=== PATIENT | female | born 1965 | race American Indian/Alaskan Native ===

== ENCOUNTER 2018-02-17 22:07 | Emergency (ER) | payer BC ==
[2018-02-17] MEDS: Ondansetron 4 MG/2 ML SDV IV ONE (23:32)
[2018-02-17] MEDS: Morphine 2 MG/ML Syringe IVPUSH ONE (23:34)
[2018-02-17] MEDS: Sodium Chloride 0.9% 10 ML Syringe FLUSH PRN (23:36)
[2018-02-17 23:58] LABS: CHLORIDE,CL 103 mmol/L (101-111); SODIUM,NA 136 mmol/L (135-145)
[2018-02-18] MEDS: Iopamidol 612 MG/ML 100 ML Bottle IVPUSH ONE (00:09)
--- NOTE | 2018-03-02 03:18 | ER ---
SUBJECTIVE: The patient is a 52-year-old, who comes into the emergency room POV and ambulates into the ER stating that she has had some left-sided abdominal pain and flank pain over the last 4 days or so, some chills, some nausea. No diarrhea. No bowel changes; except this morning, she did have one episode of nonbloody diarrhea. She took some Tylenol yesterday. She still feels somewhat nauseated. She denies history of kidney stones. Denies diverticulitis or diverticulosis. She denies any dysuria. No hematuria. No trauma or falls. No recent travel. PAST MEDICAL HISTORY: Includes: 1. OA. 2. Glaucoma. 3. Hyperlipidemia. 4. Pyelonephritis. 5. Urinary tract infection. 6. Hysterectomy. 7. Pregnancies. 8. Fibromyalgia. 9. Hyperthyroidism. 10.Psoriasis. 11.Anxiety. 12.Dermatitis. 13.Chickenpox and mumps. CURRENT MEDICATIONS: Include: 1. Celebrex p.o. daily. 2. Flexeril 10 mg p.o. daily. 3. Cymbalta 30 mg p.o. daily. 4. Xalatan eyedrops 1 drop topically daily. 5. Synthroid 100 mcg p.o. daily. ALLERGIES: She states she is allergic to levothyroxine, it causes swelling. SOCIAL HISTORY: She is a previous tobacco user. She does use alcohol on occasion. No other substance abuse. REVIEW OF SYSTEMS: No fever, chest pain, shortness of breath, ENT issues, headache, syncope, near syncope. She does have left-sided abdominal pain sometimes radiates up to her left flank. No specific bowel changes except one episode of diarrhea today. No melena. No hematochezia. No trauma or falls. No bites stings or rashes. Please see HPI. OBJECTIVE: Vital Signs: She is afebrile. Heart rate 81, blood pressure is 132/92, respiratory rate 16, oxygen 95% on room air. General: Pleasant, fairly good historian. Normocephalic and atraumatic. No respiratory distress. Chest: Clear. Cardiovascular: RRR. Skin: No jaundice. Abdomen: It is soft. Some left-sided tenderness, it is mild and vague and more subjective than objective. Possibly mild left-sided CVAT. No right-sided flank pain. LAB/STUDIES: Complete blood cell count was performed. White count was 11.6, she has no anemia. Normal differential. Electrolytes are quiet unremarkable. Creatinine was 0.7. Her urinalysis showed yellow urine with slight cloudiness. She had 30 of protein. Negative ketones. Large amount of occult blood. Negative nitrites. Negative leukocyte esterase. Rare bacteria. A CAT scan was performed and it did show bilateral kidney stones. It did not show any hydronephrosis or hydroureter or any stones present in the ureter at this time. However, it appears that one probably just likely passed which is the reason for her pain and also the hematuria. EMERGENCY ROOM COURSE: An IV was placed. She was given morphine for pain. Zofran to prevent vomiting. She tolerated this very well as the CAT scan and workup. Her nausea and pain resolved. All of the workup was discussed with her. She remained stable and much improved. ASSESSMENT: 1. Bilateral kidney stones, confirmed with CAT scan. 2. Hematuria, likely caused from passage of the kidney stone. PLAN: Advised the patient to pursue aggressive hydration, take Tylenol or ibuprofen for discomfort. Continue with her home medications. Follow up with her primary care provider for a recheck. I advised her that she could drop another stone from the kidney and pass it through her your. She will follow up this next week. [facility] /[id number]
== END 2018-02-18 01:23 | disposition home or self-care (01) ==
LOC: DL.ED 22:07
DX: N20.0 Calculus of kidney (principal); F41.9 Anxiety disorder, unspecified; L40.9 Psoriasis, unspecified; Z88.8 Allergy status to other drugs, medicaments and biological substances; Z79.899 Other long term (current) drug therapy; Z87.891 Personal history of nicotine dependence
CPT/HCPCS: 36415; 74177; 80053; 81001; 82150; 85025; 96374; 96375; 99284; J2270; J2405; J7050; Q9967

== ENCOUNTER 2019-11-21 19:15 | Emergency (ER) | payer BC ==
[2019-11-21] MEDS ORDERED: Lactated Ringers 1,000 ML IV ONE (19:51)
[2019-11-21] MEDS ORDERED: Sodium Chloride 0.9% 10 ML Syringe FLUSH PRN (19:51)
--- NOTE | 2019-11-21 19:55 | EDM.PDOC ---
ED HPI GENERAL MEDICAL PROBLEM - General Chief Complaint: General Stated Complaint: HEAD ACHE, OFF BALANCE, Time Seen by Provider: 11/21/19 19:50 Source of Information: Reports: Patient History Limitations: Reports: No Limitations - History of Present Illness INITIAL COMMENTS - FREE TEXT/NARRATIVE: she comes emergency department today with complaints of a week of not feeling well. She states that she is just getting over some type of bug over the last week. She has had an upset stomach. She has had diarrhea for multiple days. Today she feels lightheaded and unsteady when she is walking. She vomited at work last night. She has night sweats. No fever. No cough or congestion. No chest pain or shortness of breath or difficulty breathing. No syncope no palpitations. No abdominal pain. No hematuria dysuria or urinary frequency. . No vaginal discharge. She has had multiple bouts of diarrhea. She's had little appetite and she has drank little fluids.she does have a history of fibromyalgia and does complain of chronic back pain but she does complain of more pain on her left flank area. No hematuria no history of kidney stones. Left Lower Back Pain Score (Numeric/FACES): 7 - Related Data Allergies Allergy/AdvReac Type Severity Reaction Status Date / Time levothyroxine sodium Allergy Swelling Verified 05/17/19 07:03 [From Synthroid] GREEN DYE Allergy Swelling Uncoded 05/17/19 12:08 Home Meds: Home Meds Celecoxib 200 mg PO DAILY 02/17/18 [History] Latanoprost [Xalatan] 1 drop TOP DAILY 02/17/18 [History] Levothyroxine [Sythroid] 125 mcg PO DAILY 02/17/18 [History] Baclofen 5 mg PO BID 05/17/19 [History] Cholecalciferol (Vitamin D3) [Vitamin D3] 5,000 unit PO DAILY 05/17/19 [History] DULoxetine HCl [Cymbalta] 60 mg PO DAILY 05/17/19 [History] Fluticasone Propionate [Flonase] 2 inhalation NASBOTH BEDTIME 05/17/19 [History] SUMAtriptan succinate [Sumatriptan Succinate] 25 mg PO ASDIRECTED PRN MDD 200mg/ day 05/17/19 [History] Past Medical History HEENT History: Reports: Glaucoma Cardiovascular History: Reports: High Cholesterol Genitourinary History: Reports: Pyelonephritis, UTI, 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: Musculoskeletal History: Reports: Fibromyalgia Psychiatric History: Reports: Anxiety Endocrine/Metabolic History: Reports: Hyperthyroidism Dermatologic History: Reports: Eczema, Psoriasis - Infectious Disease History Infectious Disease History: Reports: Chicken Pox, Mumps - Past Surgical History Female Surgical History: Reports: Hysterectomy Social & Family History - Family History Family Medical History: Noncontributory - Tobacco Use Smoking Status *Q: Former Smoker Used Tobacco, but Quit: No - Caffeine Use Caffeine Use: Reports: Coffee, Energy Drinks, Soda, Tea - Recreational Drug Use Recreational Drug Use: No ED ROS GENERAL - Review of Systems Review Of Systems: Comprehensive ROS is negative, except as noted in HPI. ED EXAM, GENERAL - Physical Exam Exam: See Below Exam Limited By: No Limitations General Appearance: Alert, WD/WN Throat/Mouth: Other (oropharynx is quite dry lips are cracked) Head: Atraumatic, Normocephalic Neck: Normal Inspection, Supple, Non-Tender Respiratory/Chest: No Respiratory Distress, Lungs Clear, Normal Breath Sounds, No Accessory Muscle Use Cardiovascular: Normal Peripheral Pulses, Regular Rate, Rhythm GI/Abdominal: Normal Bowel Sounds, Soft, Non-Tender Back Exam: Normal Inspection, Full Range of Motion. No: CVA Tenderness (L), CVA Tenderness (R) Extremities: Normal Inspection, Normal Range of Motion, Normal Capillary Refill Neurological: Alert, Oriented, Normal Cognition Psychiatric: Normal Affect, Normal Mood Skin Exam: Warm, Dry, Intact, Cool Course - Vital Signs Last Recorded V/S: Last Vital Signs Temp 36.2 C 11/21/19 19:26 Pulse 71 11/21/19 19:26 Resp 18 11/21/19 19:26 BP 129/75 11/21/19 19:26 Pulse Ox 97 11/21/19 19:26 - Orders/Labs/Meds Orders: Active Orders 24 hr Category Date Time Status Peripheral IV Care [RC] . DIRECTED Care 11/21/19 19:51 Active Sodium Chloride 0.9% [Saline Flush] Med 11/21/19 19:51 Active 10 ml FLUSH ASDIRECTED PRN Peripheral IV Insertion Adult [OM.PC] Stat Oth 11/21/19 19:51 Ordered Medication Orders Sodium Chloride (Saline Flush) 10 ml FLUSH ASDIRECTED PRN PRN Reason: Keep Vein Open Last Admin: 11/21/19 20:05 Dose: 10 ml Labs: Laboratory Tests 11/21/19 11/21/19 11/21/19 Range/Units 19:33 19:46 19:46 WBC 9.1 (5.0-10.0) 10^3/uL RBC 4.50 (4.2-5.4) 10^6/uL Hgb 13.1 (12.0-16.0) g/dL Hct 39.4 (37.0-47.0) % MCV 87.6 D (80-100) fL MCH 29.1 (27.0-34.0) pg MCHC 33.2 (33.0-35.0) g/dL Plt Count 375 (150-450) 10^3/uL Neut % (Auto) 52.3 (42.2-75.2) % Lymph % (Auto) 38.1 (20.5-50.1) % [place] % (Auto) 5.6 (2-8) % Eos % (Auto) 3.6 H (1.0-3.0) % Baso % (Auto) 0.4 (0.0-1.0) % Sodium 138 (135-145) mmol/L Potassium 3.7 (3.6-5.0) mmol/L Chloride 106 (101-111) mmol/L Carbon Dioxide 25.0 (21.0-31.0) mmol/L Anion Gap 10.7 BUN 13 (7-18) mg/dL Creatinine 0.7 (0.6-1.3) mg/dL Est Cr Clr Drug Dosing 85.01 mL/min Estimated GFR (MDRD) > 60 BUN/Creatinine Ratio 18.57 Glucose 103 (74-105) mg/dL Lactic Acid (0.5-2.0) mmol/L Calcium 9.3 (8.4-10.2) mg/dl Total Bilirubin 0.6 (0.2-1.0) mg/dL AST 21 (10-42) IU/L ALT 26 (10-60) IU/L Alkaline Phosphatase 85 (42-121) IU/L C-Reactive Protein (0.0-1.3) mg/dL Total Protein 7.0 (6.7-8.2) g/dl Albumin 3.8 (3.2-5.5) g/dl Globulin 3.2 Albumin/Globulin Ratio 1.19 Urine Color Yellow (YELLOW) Urine Appearance Slightly cloudy (CLEAR) Urine pH 6.0 (5.0-9.0) Ur Specific [place] 1.020 (1.005-1.030) Urine Protein Negative (NEGATIVE) Urine Glucose (UA) Negative (NEGATIVE) Urine Ketones Negative (NEGATIVE) Urine Occult Blood Trace-intact H (NEGATIVE) Urine Nitrite Negative (NEGATIVE) Urine Bilirubin Negative (NEGATIVE) Urine Urobilinogen 0.2 (0.2-1.0) mg/dL Ur Leukocyte Esterase Negative (NEGATIVE) Urine RBC 5-10 H /HPF Urine WBC 0-5 (0-5/HPF) /HPF Ur Epithelial Cells Rare (NOT SEEN) /HPF Urine Bacteria Rare (0-FEW/HPF) /HPF Urine Mucus Rare (NOT SEEN) /LPF 11/21/19 11/21/19 Range/Units 19:46 19:46 WBC (5.0-10.0) 10^3/uL RBC (4.2-5.4) 10^6/uL Hgb (12.0-16.0) g/dL Hct (37.0-47.0) % MCV (80-100) fL MCH (27.0-34.0) pg MCHC (33.0-35.0) g/dL Plt Count (150-450) 10^3/uL Neut % (Auto) (42.2-75.2) % Lymph % (Auto) (20.5-50.1) % [place] % (Auto) (2-8) % Eos % (Auto) (1.0-3.0) % Baso % (Auto) (0.0-1.0) % Sodium (135-145) mmol/L Potassium (3.6-5.0) mmol/L Chloride (101-111) mmol/L Carbon Dioxide (21.0-31.0) mmol/L Anion Gap BUN (7-18) mg/dL Creatinine (0.6-1.3) mg/dL Est Cr Clr Drug Dosing mL/min Estimated GFR (MDRD) BUN/Creatinine Ratio Glucose (74-105) mg/dL Lactic Acid 1.2 (0.5-2.0) mmol/L Calcium (8.4-10.2) mg/dl Total Bilirubin (0.2-1.0) mg/dL AST (10-42) IU/L ALT (10-60) IU/L Alkaline Phosphatase (42-121) IU/L C-Reactive Protein 0.9 (0.0-1.3) mg/dL Total Protein (6.7-8.2) g/dl Albumin (3.2-5.5) g/dl Globulin Albumin/Globulin Ratio Urine Color (YELLOW) Urine Appearance (CLEAR) Urine pH (5.0-9.0) Ur Specific [place] (1.005-1.030) Urine Protein (NEGATIVE) Urine Glucose (UA) (NEGATIVE) Urine Ketones (NEGATIVE) Urine Occult Blood (NEGATIVE) Urine Nitrite (NEGATIVE) Urine Bilirubin (NEGATIVE) Urine Urobilinogen (0.2-1.0) mg/dL Ur Leukocyte Esterase (NEGATIVE) Urine RBC /HPF Urine WBC (0-5/HPF) /HPF Ur Epithelial Cells (NOT SEEN) /HPF Urine Bacteria (0-FEW/HPF) /HPF Urine Mucus (NOT SEEN) /LPF Meds: Medications Generic Name Dose Route Start Last Admin Trade Name Freq PRN Reason Stop Dose Admin Sodium Chloride 10 ml 11/21/19 19:51 11/21/19 20:05 Saline Flush FLUSH 10 ml ASDIRECTED PRN Administration Keep Vein Open Discontinued Medications Generic Name Dose Route Start Last Admin Trade Name Freq PRN Reason Stop Dose Admin Lactated Ringer's 1,000 mls @ 1,000 mls/hr 11/21/19 19:51 11/21/19 20:05 Ringers, Lactated IV 11/21/19 20:50 1,000 mls/hr .BOLUS ONE Administration Ketorolac Tromethamine 30 mg 11/21/19 21:00 11/21/19 21:11 Toradol IVPUSH 11/21/19 21:01 30 mg ONETIME ONE Administration Tamsulosin HCl 0.4 mg 11/21/19 21:00 11/21/19 21:11 Flomax PO 11/21/19 21:01 0.4 mg ONETIME ONE Administration - Radiology Interpretation Free Text/Narrative:: CT abdomen and pelvis without contrast looking for kidney stones shows a 2 cm calculus noted in the left renal pelvis with mild left hydronephrosis. This calculus likely causes intermittent UPJ obstruction and clinical left renal colic. 5 mm nonobstructing calculus also noted in the right internal collecting system. Tiny umbilical hernia contains only fat severely contracted gallbladder. The physiologic. - Re-Assessments/Exams Free Text/Narrative Re-Assessment/Exam: 11/21/19 21:23 she initially was given a liter of LR wide open. Her unsteadiness lightheadedness and headache had resolved following the above therapy. Her urine had a small amount of blood in it CT scan looking for kidney stones showed a 5 mm in the right and a rather large 2 cm stone in the left kidney. This is most likely get any lithotripsy. Her pain is much improved after she received some Toradol in the emergency department. Follow-up with urology next available appointment as she most likely will need lithotripsy for this. Increase fluids pain management and Flomax. Anything new or worse she is to recheck she is comfortable with this plan her questions are answered. Departure - Departure Time of Disposition: 21:19 Disposition: Home, Self-Care 01 Clinical Impression: Kidney stones - Discharge Information Instructions: Renal Colic, [id number], Kidney Stones, [id number] Forms: ED Department Discharge Additional Instructions: Lots of fluids over the next few weeks until you see the urologist. No soda or pop. Flomax, 1 capsule daily for the next 14 days. RX given to the patient. #14. No refills. Tylenol and or Ibuprofen as needed for pain. If pain not controlled with above. [place] 1-2 tabs every 4-6 hrs as needed for pain. Caution sedation. RX given to the patient #15 no refills. Make appointment with urologist next available tomorrow by your clinic on the phone and relay the findings of the two kidney stones and one that is too large to pass and will most likely need lithotripsy to break up the stone. Return to the ED if new or worsening symptoms. Sepsis Event Note - Evaluation Sepsis Screening Result: No Definite Risk - Focused Exam Vital Signs: Vital Signs Temp Pulse Resp BP Pulse Ox 11/21/19 19:26 36.2 C 71 18 129/75 97 Date Exam was Performed: 11/21/19 Time Exam was Performed: 21:23 - My Orders Last 24 Hours: My Active Orders 11/21/19 19:51 Peripheral IV Care [RC] . DIRECTED Sodium Chloride 0.9% [Saline Flush] 10 ml FLUSH ASDIRECTED PRN Peripheral IV Insertion Adult [OM.PC] Stat - Assessment/Plan Last 24 Hours: My Active Orders 11/21/19 19:51 Peripheral IV Care [RC] . DIRECTED Sodium Chloride 0.9% [Saline Flush] 10 ml FLUSH ASDIRECTED PRN Peripheral IV Insertion Adult [OM.PC] Stat Assessment:: Kidney stones bilaterally, left 2cm Plan: Lots of fluids over the next few weeks until you see the urologist. No soda or pop. Flomax, 1 capsule daily for the next 14 days. RX given to the patient. #14. No refills. Tylenol and or Ibuprofen as needed for pain. If pain not controlled with above. [place] 1-2 tabs every 4-6 hrs as needed for pain. Caution sedation. RX given to the patient #15 no refills. Make appointment with urologist next available tomorrow by your clinic on the phone and relay the findings of the two kidney stones and one that is too large to pass and will most likely need lithotripsy to break up the stone. Return to the ED if new or worsening symptoms.
[2019-11-21 20:08] LABS: ANION GAP 10.7; CHLORIDE,CL 106 mmol/L (101-111); SODIUM,NA 138 mmol/L (135-145)
[2019-11-21] MEDS ORDERED: Tamsulosin 0.4 MG Cap.ER PO ONE (21:00)
[2019-11-21] MEDS ORDERED: Ketorolac 30 MG/ML SDV IVPUSH ONE (21:00)
== END 2019-11-21 21:26 | disposition home or self-care (01) ==
LOC: DL.ED 19:15
DX: N13.2 Hydronephrosis with renal and ureteral calculous obstruction (principal); E78.00 Pure hypercholesterolemia, unspecified; E03.9 Hypothyroidism, unspecified; H40.9 Unspecified glaucoma; Z79.890 Hormone replacement therapy; Z79.899 Other long term (current) drug therapy; Z87.891 Personal history of nicotine dependence; Z88.8 Allergy status to other drugs, medicaments and biological substances; Z91.048 Other nonmedicinal substance allergy status
CPT/HCPCS: 36415; 74176; 80053; 81001; 83605; 85025; 86140; 96361; 96374; 99284; A9270; J1885; J7120